=== PATIENT | male | born 1985 | race Caucasian/White ===

== ENCOUNTER 2022-11-02 06:59 | Emergency (ER) | payer SELFPAY ==
[~2022-11-02] VITALS: Ht 182.9 cm; Wt 77.3 kg
[2022-11-02 07:10] VITALS: BP 139/84
[2022-11-02] MEDS ORDERED: AMPH20TA3 PO (07:10)
[2022-11-02] MEDS: KETOROLAC TROMETHAMINE 60 MG/2 ML VIAL IM ONE ×2 (07:51→07:59)
[2022-11-02] MEDS: DEXAMETHASONE SOD PHOS 4 MG/ML VIAL IM ONE ×2 (07:51→07:59)
[2022-11-02] MEDS ORDERED: BACLOFEN 10 MG TABLET PO ONE (08:00)
[2022-11-02] MEDS ORDERED: ACETAMINOPHEN/CODEINE 300-30 MG TABLET PO ONE (08:00)
[2022-11-02] MEDS ORDERED: BACL10TA PO (09:08)
[2022-11-02] MEDS ORDERED: IBUP-1554 PO (09:08)
== END 2022-11-02 09:11 | disposition home or self-care (01) ==
LOC: EMS 07:03
DX: S39.012A Strain of muscle, fascia and tendon of lower back, initial encounter (principal); F90.9 Attention-deficit hyperactivity disorder, unspecified type; F17.210 Nicotine dependence, cigarettes, uncomplicated; F12.90 Cannabis use, unspecified, uncomplicated; Z90.49 Acquired absence of other specified parts of digestive tract; X50.0XXA Overexertion from strenuous movement or load, initial encounter; Y93.89 Activity, other specified; Y92.89 Other specified places as the place of occurrence of the external cause; Y99.8 Other external cause status
CPT/HCPCS: 99283; 72100; J1100; J1885